=== PATIENT | male | born 1990 | race Caucasian/White ===

== ENCOUNTER 2017-10-01 14:21 | Emergency (ER) | payer BC ==
[~2017-10-01] VITALS: Ht 177.8 cm; Wt 63.0 kg
[~2017-10-01 14:21] MED LIST: LORTA5 PO
[2017-10-01 14:24] VITALS: BP 146/81; PULSE 95; RESP 16; TEMP 98.5; O2SAT 97
[2017-10-01] MEDS ORDERED: LIDOCAINE HCL 1% 30 ML VIAL ONE (14:36)
--- NOTE | 2017-10-01 14:39 | PD ---
HPI Chief Complaint: Injury Time Seen by Provider: 14:29 Travel History International Travel<30 days: No Contact w/Intl Traveler<30days: No Traveled to known affect area: No History of Present Illness HPI 27-year-old male complaining of laceration to the right hand. It was skateboarding and struck the right hand against a metal object. Patient states that he has a laceration between the third and fourth fingers. Patient states that he is up-to-date with TD booster. Patient complaining numbness sensation to the tip of the right fourth finger and MCP dorsal aspect of the right third finger. Patient denies any other injury. Patient denies any pain to the bony area of the right hand. PFSH Past Medical History Medical History: Denies Significant Hx Diminished Hearing: No Immunizations Current: Yes Tetanus Vaccination: Unknown Influenza Vaccination: No Social History Alcohol Use: Yes (weekends) Tobacco Use: Yes (<1 PPD) Substance Use: No Allergies-Medications (Allergen,Severity, Reaction): Coded Allergies: No Known Allergies (Verified Adverse Reaction, Unknown, 10/01/17) Reported Meds & Prescriptions Reported Meds & Active Scripts Active No Active Prescriptions or Reported Medications Review of Systems General / Constitutional: No: Fever Eyes: No: Visual changes HENT: No: Headaches Cardiovascular: No: Chest Pain or Discomfort Respiratory: No: Shortness of Breath Gastrointestinal: No: Abdominal Pain Genitourinary: No: Dysuria Musculoskeletal: No: Pain Skin: No Rash Neurologic: No: Weakness Psychiatric: No: Depression Endocrine: No: Polydipsia Hematologic/Lymphatic: No: Easy Bruising Physical Exam Narrative GENERAL: Well-nourished, well-developed patient. SKIN: Focused skin assessment warm/dry. HEAD: Normocephalic. EYES: No scleral icterus. No injection or drainage. NECK: Supple, trachea midline. No JVD or lymphadenopathy. CARDIOVASCULAR: Regular rate and rhythm without murmurs, gallops, or rubs. RESPIRATORY: Breath sounds equal bilaterally. No accessory muscle use. GASTROINTESTINAL: Abdomen soft, non-tender, nondistended. MUSCULOSKELETAL: No cyanosis, or edema. BACK: Nontender without obvious deformity. No CVA tenderness. Patient has 4 cm laceration to the webspace between the third and fourth fingers. Mild decrease in light touch sensation tip of the right fourth finger. Full range of motion of the fingers. No obvious ligament tendon joint involvement. Data Data Last Documented VS Vital Signs Date Time Temp Pulse Resp B/P (MAP) Pulse Ox O2 Delivery O2 Flow Rate FiO2 10/01/17 14:30 Room Air 10/01/17 14:24 98.5 95 16 146/81 (102) 97 Orders Orders Lidocaine 1% Inj (Xylocaine 1% Inj) (10/01/17 14:45) Lidocaine 1% Inj (Xylocaine 1% Inj) (10/01/17 14:36) MDM Medical Decision Making Medical Screen Exam Complete: Yes Emergency Medical Condition: Yes Differential Diagnosis Differential diagnosis including laceration, nerve injury, ligament tenderness injury. Narrative Course 37-year-old male with right hand laceration. Patient has localized mild decrease in light touch sensation on the tip of right fourth finger. Procedures Procedure Narrative LACERATION LOCATION: Right hand LENGTH: 4 cm NUMBER OF STITCHES/LISA: 10 REPAIR: The area of the laceration was prepped with Betadine and sterilely draped. The laceration was infiltrated with 1% lidocaine. The wound was copiously irrigated and explored without evidence of foreign body, tendon injury or neurovascular injury. The wound was closed using 4-0 Prolene. This was a single layer repair. A sterile dressing was applied. The patient was advised to keep the dressing clean and dry. Patient tolerated the procedure well. Diagnosis Primary Impression: Laceration of right hand Qualified Codes: S61.411A - Laceration without foreign body of right hand, initial encounter Patient Instructions: General Instructions Additional Instructions: Wound care daily. Suture removal in 14 days. Take medications as directed. Med/Other Pt SpecificInfo: Prescription(s) given Scripts Meloxicam (Mobic) 15 Mg Tab 15 MG PO DAILY for Pain, #14 TAB 0 Refills Prov: Phani Whiting MD 10/01/17 Tramadol (Ultram) 50 Mg Tab 50 MG PO Q6H Y for PAIN, #10 TAB 0 Refills Prov: Phani Whiting MD 10/01/17 Cephalexin (Keflex) 500 Mg Cap 500 MG PO TID for Infection, #15 CAP 0 Refills Prov: Phani Whiting MD 10/01/17 Disposition: 01 DISCHARGE HOME Condition: Stable Phani Whiting MD Oct 01, 2017 14:39
[2017-10-01] MEDS ORDERED: LIDOCAINE HCL 1% 30 ML VIAL INFIL ONE (14:45)
[2017-10-01] MEDS ORDERED: TRAM50 PO (15:28)
[2017-10-01] MEDS ORDERED: MOBI15TA PO (15:28)
[2017-10-01] MEDS ORDERED: CEPH-460 PO (15:28)
== END 2017-10-01 15:44 | disposition home or self-care (01) ==
LOC: PHED 14:21
DX: S61.411A Laceration without foreign body of right hand, initial encounter (principal); F17.210 Nicotine dependence, cigarettes, uncomplicated; W26.8XXA Contact with other sharp object(s), not elsewhere classified, initial encounter; Y93.51 Activity, roller skating (inline) and skateboarding
CPT/HCPCS: 12002